=== PATIENT | female | born 1990 | race Caucasian/White ===

== ENCOUNTER 2016-10-24 22:50 | Emergency (ER) | payer OTHER ==
[~2016-10-24 22:50] MED LIST: ALBUTEROL17 GM INH; LEVAQUIN PO; MACROBID100 M1 PO; NO MEDICATIONS; PROMETHAZINE D118 ML PO; PYRIDIUM100 MG PO; SYNTHROID PO; SYNTHROID0.05 MG PO
[2016-10-25] MEDS ORDERED: NEURONTIN (18:12)
[2016-10-25] MEDS ORDERED: VIBRAMYCIN100 M1 (18:12)
== END 2016-10-24 23:42 | disposition home or self-care (01) ==
LOC: SED 22:50
DX: L03.114 Cellulitis of left upper limb (principal); B19.20 Unspecified viral hepatitis C without hepatic coma
CPT/HCPCS: 99282

== ENCOUNTER 2016-10-25 18:07 | Emergency (ER) | payer OTHER ==
[2016-10-25] MEDS ORDERED: VIBRAMYCIN100 M1 (18:12)
[2016-10-25] MEDS ORDERED: NEURONTIN (18:12)
[2016-10-25 18:46] LABS: BASOPHIL% 0.2 % (0-2.5); HEMATOCRIT 37.5 % (35.0-45.0); HEMOGLOBIN 12.6 gm/dL (12.0-16.0); LYMPHOCYTE# 0.8 X10e3 (1.0-3.5); LYMPHOCYTE% 3.2 % (17.0-45.0); MEAN CELL VOLUME 89.2 FL (83-96); MEAN CORPUSCULAR HGB CONC 33.7 g/dL (30-36); MEAN PLATELET VOLUME 7.8 FL (6.5-11.5); MONOCYTE# 2.3 X10e3 (0-1.0); MONOCYTE% 9.7 % (3.0-12.0); NEUTROPHIL# 20.6 X10e3 (1.5-7.1); NEUTROPHIL% 86.9 % (40-75); PLATELET COUNT 204 X10e3 (140-420); RED BLOOD COUNT 4.21 X10e (3.90-5.30); RED CELL DISTRIBUTION WIDTH 13.1 % (11.0-15.5); WHITE BLOOD COUNT 23.7 X10e3 (4.0-10.5)
[2016-10-25 18:48] LABS: DIFF IND NO
[2016-10-25 19:01] LABS: BLOOD UREA NITROGEN 9 mg/dL (9-23); BUN/CREATININE RATIO 11.25; CALCIUM SERUM 9.4 mg/dL (8.4-10.2); CARBON DIOXIDE 22 mmol/L (22-31); CHLORIDE 106 mmol/L (100-111); CREATININE SERUM 0.8 mg/dL (0.6-1.4); GLOM FILT RATE Estimated ABOVE60 mL/min (>60); GLUCOSE FASTING 145 mg/dL (70-110); POTASSIUM 3.5 mmol/L (3.5-5.1); SODIUM 139 mmol/L (135-145)
[2016-10-25 19:32] LABS: URINE SOURCE CLEAN CATCH
[2016-10-25 19:34] LABS: URINE APPEARANCE CLEAR; URINE BILIRUBIN NEG (NEG); URINE BLOOD TRACE-INTACT (NEG); URINE COLOR YELLOW; URINE GLUCOSE NEG (NORM); URINE KETONE NEG (NEG); URINE LEUKOCYTE ESTERASE 1+ (NEG); URINE NITRATE NEG (NEG); URINE PH 5.5 (5-8); URINE PROTEIN NEG (NEG); URINE UROBILINOGEN 0.2 MG/DL (NORM)
[2016-10-25 19:36] LABS: MICRO INDICATED? YES
[2016-10-25 19:37] LABS: CULTURE INDICATED? YES; URINE BACTERIA 1+ (NEG); URINE MUCUS PRESENT; URINE SQUAMOUS EPITHELIAL CELL OCCAS /[HPF]; URINE TRICHOMONAS PRESENT
[2016-10-25 19:50] LABS: AMPHETAMINE NEG (NEG); BARBITURATES NEG (NEG); BENZODIAZEPINES NEG (NEG); COCAINE NEG (NEG); MARIJUANA POS (NEG); OPIATES POS (NEG); TRICYCLIC ANTIDEPRESSANTS NEG (NEG); U METHADONE NEG (NEG)
== END 2016-10-25 22:13 ==
LOC: SED 18:07
PROVIDERS: Emergency Medicine
DX: L03.114 Cellulitis of left upper limb (principal); F19.10 Other psychoactive substance abuse, uncomplicated; N39.0 Urinary tract infection, site not specified; F17.200 Nicotine dependence, unspecified, uncomplicated; Z88.0 Allergy status to penicillin; Z88.2 Allergy status to sulfonamides
CPT/HCPCS: 36415; 80048; 80307; 81003; 83605; 84703; 85025; 87040; 87086; 96361; 96365; 96367; 99285; J1956

== ENCOUNTER 2016-12-04 11:00 | Emergency (ER) | payer SELFPAY ==
[~2016-12-04 11:00] MED LIST changes: +NEURONTIN; +VIBRAMYCIN100 M1
== END 2016-12-04 11:20 | disposition left against medical advice (07) ==
LOC: CED 11:00
DX: F11.10 Opioid abuse, uncomplicated (principal)
CPT/HCPCS: 99282

== ENCOUNTER 2017-01-08 18:19 | Emergency (ER) | payer OTHER ==
[2017-01-08 18:54] LABS: URINE SOURCE CLEAN CATCH
[2017-01-08 18:57] LABS: URINE APPEARANCE CLEAR; URINE BILIRUBIN NEG (NEG); URINE BLOOD NEG (NEG); URINE COLOR YELLOW; URINE GLUCOSE NEG (NORM); URINE KETONE NEG (NEG); URINE LEUKOCYTE ESTERASE NEG (NEG); URINE NITRATE NEG (NEG); URINE PROTEIN NEG (NEG)
[2017-01-08 18:58] LABS: MICRO INDICATED? NO
[2017-01-13 02:19] LABS: CHLAMYDIA TRACH Not Detected (Not Detected); N GONOR Not Detected (Not Detected)
== END 2017-01-08 19:52 | disposition home or self-care (01) ==
LOC: SED 18:19
PROVIDERS: Physician Assistant
DX: Z32.01 Encounter for pregnancy test, result positive (principal); B37.3 Candidiasis of vulva and vagina; Z88.0 Allergy status to penicillin; Z88.2 Allergy status to sulfonamides; Z88.8 Allergy status to other drugs, medicaments and biological substances
CPT/HCPCS: 81003; 84703; 87210; 87491; 87591; 87808; 87905; 99284